=== PATIENT | female | born 2000 | race Caucasian/White ===

== ENCOUNTER 2023-03-05 12:56 | Emergency (ER) | payer MEDICAID, SELFPAY ==
[2023-03-05 13:01] VITALS: BP 133/93; PULSE 86; RESP 20; TEMP 36.6; O2SAT 100; BMI 33.0
--- NOTE | 2023-03-05 13:15 | XR_ITS ---
[facility] [id number] Patient Name: HALI HOPE MRN: [id number] date: 2000 Sex: F Assigned Patient Location: ER Current Patient Location: ER Accession/Order Number: [id number] Exam Date: 03/05/2023 13:30 Report Date: 03/05/2023 14:12 At the request of: DARIA HUNT Procedure: XR cervical spine 2-3V EXAMINATION: XR cervical spine 2-3V HISTORY: pain COMPARISON: No relevant comparison available. FINDINGS: BONES: No significant spondylosis, scoliosis, fracture, or visible bony lesion. DISC SPACES: No significant disc height narrowing, subluxation, or endplate abnormality. PARASPINOUS: Negative. No paraspinous abnormality is seen. OTHER: Negative. XR/XR cervical spine 2-3V IMPRESSION: 1. Straightening of normal lordotic curvature; positioning versus muscle spasm. 2. No acute abnormality or significant degenerative changes. Electronically authenticated by: SACHIN SHELTON Date: 03/05/2023 14:12
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
[2023-03-05] MEDS: KETOROLAC TROMETHAMINE 60 MG/2 ML VIAL IM (13:23)
[2023-03-05] MEDS: ORPHENADRINE 60 MG/ 2 ML VIAL IM (13:24)
[2023-03-05] MEDS: PREDNISONE 20 MG TABLET 40 MG PO (13:24)
== END 2023-03-05 14:36 | disposition home or self-care (01) ==
PROVIDERS: Emergency Provider Emergency Medicine
DX: M43.6 Torticollis (principal)
CPT/HCPCS: 72040; 96372; 99284